=== PATIENT | female | born 1970 | race Caucasian/White ===

== ENCOUNTER 2023-05-30 10:58 | Outpatient (CLI) | payer OTHER, SELFPAY | END 2023-05-30 10:59 | disposition home or self-care (01) | PROVIDERS: PCP Family Medicine; Visit Provider Family Medicine | DX: E78.00 Pure hypercholesterolemia, unspecified (principal); B02.21 Postherpetic geniculate ganglionitis; I10 Essential (primary) hypertension; Z79.899 Other long term (current) drug therapy | CPT/HCPCS: 80061; 80076 ==

== ENCOUNTER 2023-06-18 09:49 | Outpatient (CLI) | payer OTHER, SELFPAY ==
--- NOTE | 2023-06-18 10:15 | MR_ITS ---
Patient: JERZY SHUKLA Facility:?[facility] RIS Patient ID:?[id number] Site Patient ID:?[id number]. Site :?[id number] Study:?MRI-Head W/ and W/O Cont 20 CC DOATERM IAC'S-06/18/2023 11:22:36 AM Ordering Physician:RAMY SALGUERO Final Report: INDICATION: Tinnitus. TECHNIQUE: Multiplanar multisequence MR imaging of the brain and internal auditory canals prior to and following intravenous contrast. COMPARISON: None. FINDINGS: The ventricles and sulci are within normal limits for patient age. No mass effect or midline shift. Few punctate FLAIR hyperintensities in the supratentorial white matter, nonspecific. No intracranial hemorrhage or pathologic extra-axial fluid collection. No diffusion restriction to suggest acute infarction. No pathologic intra-axial enhancement. Asymmetrically increased enhancement within the right internal auditory canal fundus (series 12, image 9 and series 13, image 13). No concerning signal abnormalities in the inner ear structures. No vascular loop within the internal auditory canals. The major arterial flow voids of the skullbase are preserved. The globes are symmetric. The paranasal sinuses are well aerated. Small to moderate left and small right mastoid effusions. IMPRESSION: 1. Asymmetrically increased enhancement within the right internal auditory canal fundus is nonspecific, though raises the possibility of Glez`s palsy in an appropriate clinical setting. No mass within the internal auditory canals or cerebellopontine angles. 2. Few punctate FLAIR hyperintensities in the supratentorial white matter are nonspecific, though typical for sequelae of minimal chronic microvascular ischemic changes or migraine headaches 3. Small to moderate left and small right mastoid effusions. Dictated by Michael Andino MD @ 06/18/2023 2:59:57 PM Signed by:?Michael Andino MD @06/18/2023 2:59:57 PM (Electronic Signature)
== END 2023-06-18 09:50 | disposition home or self-care (01) ==
LOC: MRI 09:49
PROVIDERS: PCP Family Medicine; Visit Provider Family Medicine
DX: H93.19 Tinnitus, unspecified ear (principal); I67.82 Cerebral ischemia
CPT/HCPCS: 70553; A9575

== ENCOUNTER 2023-10-25 14:50 | Outpatient (CLI) | payer OTHER, SELFPAY | END 2023-10-25 14:51 | disposition home or self-care (01) | LOC: LKVREF 14:58 | PROVIDERS: PCP Family Medicine; Visit Provider Family Medicine | DX: E78.00 Pure hypercholesterolemia, unspecified (principal) | CPT/HCPCS: 80061; 80076 ==

== ENCOUNTER 2024-06-23 10:05 | Outpatient (CLI) | payer OTHER, SELFPAY ==
[2024-07-07 20:59] LABS: HPV Source Cervix; HPV, High Risk by TMA Not Detected
== END 2024-06-23 10:06 | disposition home or self-care (01) ==
PROVIDERS: PCP Family Medicine; Visit Provider Family Medicine
DX: N95.0 Postmenopausal bleeding (principal); I10 Essential (primary) hypertension; R53.83 Other fatigue; Z13.29 Encounter for screening for other suspected endocrine disorder; Z12.4 Encounter for screening for malignant neoplasm of cervix
CPT/HCPCS: 80048; 84443; 87624; 87625; 88141; 88142

== ENCOUNTER 2024-06-25 11:57 | Outpatient (CLI) | payer OTHER, SELFPAY ==
--- NOTE | 2024-06-25 12:15 | CRLHL7_ITS ---
For Patients: As a result of the Century Cures Act, medical imaging exams and procedure reports are released immediately into your electronic medical record. You may view this report before your referring provider. If you have questions, please contact your health care provider. CLINICAL HISTORY: Postmenopausal bleeding TECHNIQUE: Real time, ramos scale images were acquired of the pelvis using a transabdominal and transvaginal approach. Color Doppler analysis was performed of the ovaries. FINDINGS: The uterus measures 10.6 x 4.2 x 6.6 centimeters the endometrium measures 4 millimeters. Tiny amount of fluid in the endometrial canal. Right-sided fibroid measuring 4 x 3.4 x 3.5 centimeters. The right ovary measures 2.4 x 1.4 x 1.4 centimeters the left ovary is not seen. Blood flow to the right ovary. IMPRESSION: 1. 4 millimeter endometrial stripe. Minimal amount of fluid in the endometrial canal. Dictated by Cinthya Garsia MD @ 06/26/2024 5:31:06 AM (Electronically Signed)
== END 2024-06-25 11:58 | disposition home or self-care (01) ==
LOC: US 11:59
PROVIDERS: PCP Family Medicine; Visit Provider Family Medicine
DX: N95.0 Postmenopausal bleeding (principal); R93.89 Abnormal findings on diagnostic imaging of other specified body structures; E66.9 Obesity, unspecified; Z72.0 Tobacco use
CPT/HCPCS: 76830; 76856